=== PATIENT | female | born 1980 | race Caucasian/White ===

== ENCOUNTER 2018-02-06 07:12 | Inpatient (IN) | payer OTHER ==
[2018-02-06 07:44] VITALS: BMI 26.5
[2018-02-06] MEDS ORDERED: Lidocaine 1% (PF) 30 ML VIAL SC PRN (10:03)
[2018-02-06] MEDS ORDERED: Promethazine HCl 25 MG/ML VIAL IM PRN ×2 (10:03→14:05)
[2018-02-06] MEDS ORDERED: Ibuprofen 800 MG TAB PO PRN (10:03)
[2018-02-06] MEDS ORDERED: Ondansetron PF 4 MG/2 ML Vial IVP PRN ×2 (10:03→14:05)
[2018-02-06] MEDS: Lactated Ringer's 1,000 ML IV SCH ×3 (10:21→16:54)
[2018-02-06] MEDS ORDERED: Butorphanol Tartrate 1 MG/ML VIAL ONE (10:36)
[2018-02-06 10:44] LABS: Hemoglobin 12.4 g/dL (12.0-16.0); Mean Corpuscular HGB CONC 34.8 g/dL (32.0-36.0); Mean Corpuscular Hemoglobin 32.3 pg (27.0-31.0); Mean Corpuscular Volume 92.9 fL (78.0-98.0); Mean Platelet Volume 7.2 fL (7.4-10.4); Platelet Count 243 thou/uL (130-400); RBC Distribution Width 11.8 % (11.5-14.5); Red Blood Cell (RBC) Count 3.83 mill/uL (4.20-5.40); White Blood Cell (WBC) Count 9.1 thou/uL (4.8-10.8)
--- NOTE | 2018-02-06 10:44 | PDOC.LDHP ---
Labor and Delivery H&P Chief complaint: contractions HPI: 37 yo @ 39w0d by LMP c/w 11 week CRL who presents in latent labor. Antepartum course complicated by AMA, otherwise benign. Current gestational age (weeks): 39 Due date: 02/13/18 Dating criteria: last menstrual period Grav: 3 Para: 2 OB History Details: 2 TSVDs Current complications: none Abnormal US findings: No Past Medical History: Denies Current medications: pre- vitamins Previous surgical history: none Allergies/Adverse Reactions: Allergies Allergy/AdvReac Type Severity Reaction Status Date / Time No Known Allergies Allergy Unverified 02/06/18 07:40 Social history: none - Physical Exam Vital signs reviewed and normal: yes General: NAD Heart: RRR Lungs: nonlabored breathing Abdomen: gravid Extremeties: no edema FHT: category 1 (130s, mod erika, +accels, no decels) S[place] contractions every: q2-4 min - Vaginal Exam cm dilated: 4 (per RN exam ) Effacement: 90% Station: -1 - OB Labs Blood type: A RH: positive Antibody Screen: negative HIV: negative RPR: negative HEPSAg: negative 1 hour GCT: negative GBS: negative Urine drug screen: not done Rubella: immune Additional Labs: NIPT, NT and msAFP wnl - Assessment L&D Assessment: term patient in labor AMA - Plan Plan: admit to L&D, labor augmentation if indicated, informed consent obtained, anesthesia consult for pain management
[2018-02-06] MEDS ORDERED: Fentanyl 4 mcg/Bup 0.1% Cadd 100 ML ONE ×2 (11:01→16:51)
[2018-02-06 11:23] LABS: HBSAg Index 0.22 S/CO (0-0.99); Hep B Surf Ag Non-Reactive S/CO (NonReactive); Syphilis Antibody Nonreactive (Nonreactive); Syphilis Antibody Index 0.03 S/CO (<1.00 Non-Reactive)
[2018-02-06] MEDS ORDERED: NS w/ Oxytocin 10 units 500 ML ONE (13:47)
[2018-02-06] MEDS ORDERED: NS w/ Oxytocin 10 units 500 ML IVPB SCH (14:00)
[2018-02-06] MEDS ORDERED: Acetaminophen 325 MG TAB PO PRN (14:05)
[2018-02-06] MEDS ORDERED: Naloxone HCl 0.4 mg/ml Vial IVP PRN ×2 (14:05)
[2018-02-06] MEDS ORDERED: diphenhydrAMINE 50 MG/ML VIAL IVP PRN (14:05)
[2018-02-06] MEDS ORDERED: Lactated Ringer's 500 ML IV PRN (14:05)
[2018-02-06] MEDS ORDERED: Eucerin (Mineral Oil/Petrolatum,White) 30 gm Jar TOP PRN (14:05)
[2018-02-06] MEDS ORDERED: ePHEDrine/0.9% NaCl/PF SYRINGE 50 mg/10 ml SLOW IVP PRN (14:05)
[2018-02-06] MEDS ORDERED: Communication Order-Pharmacy FS SCH (14:15)
[2018-02-06] MEDS ORDERED: Fentanyl 4 mcg/Bupivacaine 0.1% Cassette 100 ML EPIDURAL SCH (14:15)
[2018-02-06] MEDS: NS / Oxytocin 40 units/1000ml 1,000 ML IV PRN ×2 (17:40→18:47)
--- NOTE | 2018-02-06 18:00 | PDOC.OPDEL ---
OB Operative/Delivery Note Delivery Dr/Surgeon: Natalia Vila DO Pre-Delivery Diagnosis: active labor Procedure/Post Delivery Dx: spontaneous vaginal delivery Weeks gestation: 39 Anesthesia: epidural - Findings A Sex: male - 1 min: 8 - 5 min: 8 - Additional Findings/Plan Placenta delivered: spontaneous Repaired Obstetrical Laceration: 2nd degree Estimated blood loss: QBL 226 mL Compilations/Other Findings: in cephalic presentation, OA position Normal placenta. Clear amniotic fluid Post delivery plan: routine recovery
[2018-02-06] MEDS ORDERED: Methylergonovine 0.2 MG/ML VIAL IM PRN (20:22)
[2018-02-06] MEDS ORDERED: diphenhydrAMINE 25 MG CAP PO PRN (20:22)
[2018-02-06] MEDS ORDERED: Misoprostol 200 MCG TAB VAG PRN (20:22)
[2018-02-06] MEDS ORDERED: Lanolin Ointment 7 GM TUBE TOP PRN (20:22)
[2018-02-06] MEDS ORDERED: Benzocaine/Menthol 20-0.5% 60 ML CAN TOP PRN (20:22)
[2018-02-06] MEDS ORDERED: Zolpidem Tartrate 5 MG TAB PO PRN (20:22)
[2018-02-06] MEDS ORDERED: NS / Oxytocin 40 units/1000ml 1,000 ML IV SCH (20:22)
[2018-02-06] MEDS ORDERED: HYDROcodone/Acetaminophen 5/325 mg Tablet PO PRN (20:22)
[2018-02-06] MEDS ORDERED: Bisacodyl 10 MG SUPP PR PRN (20:22)
[2018-02-06] MEDS ORDERED: Milk Of Magnesia 30 ML UDCUP PO PRN (20:22)
[2018-02-06] MEDS: Docusate Calcium (SURFAK) 240 MG CAP PO SCH (21:54)
[2018-02-07] MEDS: Ibuprofen 800 MG TAB PO SCH ×3 (01:32→15:06)
[2018-02-07 06:23] LABS: Hemoglobin 10.8 g/dL (12.0-16.0); Mean Corpuscular HGB CONC 33.6 g/dL (32.0-36.0); Mean Corpuscular Hemoglobin 31.9 pg (27.0-31.0); Mean Corpuscular Volume 95.1 fL (78.0-98.0); Mean Platelet Volume 6.8 fL (7.4-10.4); Platelet Count 203 thou/uL (130-400); RBC Distribution Width 11.9 % (11.5-14.5); Red Blood Cell (RBC) Count 3.37 mill/uL (4.20-5.40); White Blood Cell (WBC) Count 9.5 thou/uL (4.8-10.8)
[2018-02-07] MEDS: Docusate Calcium (SURFAK) 240 MG CAP PO SCH (08:55)
[2018-02-07] MEDS ORDERED: Prenatal Vitamin 1 TAB PO SCH (09:00)
--- NOTE | 2018-02-07 10:41 | PDOC.PP ---
Post Progress Note Post Day #: 1 Subjective: No concerns. Minimal pain and lochia, Breast feeding. PO intake tolerated: yes Flatus: yes Ambulation: yes Vital Signs (12 hours) Temp Pulse Resp BP Pulse Ox 02/07/18 08:24 97.8 F 70 20 111/69 98 02/07/18 05:30 98.1 F 81 16 100/61 02/06/18 23:00 98.9 F 85 16 102/52 L Weight Weight 185 lb - Physical Examination General: NAD Cardiovascular: RRR Respiratory: clear to auscultation bilaterally, non-labored breathing Abdominal: no distention, appropriately TTP Fundus firm & at: below umbilicus Extremities: negative homans (B) Neurological: no gross focal deficits Psychiatric: A&Ox3, normal affect Result Diagrams: 02/07/18 06:06 Additional Labs: Post Labs Blood Type A POSITIVE 02/06/18 10:06 Hep Bs Antigen Non-Reactive S/CO (NonReactive) 02/06/18 10:06 (1) Vaginal delivery Code(s): O80 - ENCOUNTER FOR FULL-TERM UNCOMPLICATED DELIVERY Status: Acute - Assessment/Plan PPD1 VSSAF Meeting requirements for d/c. Plan for d/c home this PM with infant.
[2018-02-07] MEDS ORDERED: Bupivacaine/Epinephrine 0.25% 30 ML VIAL ONE (11:11)
[2018-02-07] MEDS ORDERED: ePHEDrine/0.9% NaCl/PF SYRINGE 50 mg/10 ml ONE (11:11)
[2018-02-07 11:57] VITALS: BP 105/64; TEMP 97.6
== END 2018-02-07 20:30 | disposition home or self-care (01) | DRG 807 ==
LOC: L&D/OP 07:12 → L&D 14:15 → 3SW 20:59
PROVIDERS: ADMIT Obstetrics & Gynecology; ATTEND Obstetrics & Gynecology
PROC: 10E0XZZ Delivery of Products of Conception, External Approach (ICD-10-PCS; principal; 2018-02-06)
PROC: 0KQM0ZZ Repair Perineum Muscle, Open Approach (ICD-10-PCS; 2018-02-06)
PROC: 10907ZC Drainage of Amniotic Fluid, Therapeutic from Products of Conception, Via Natural or Artificial Opening (ICD-10-PCS; 2018-02-06)
DX: O69.81X0 Labor and delivery complicated by cord around neck, without compression, not applicable or unspecified (principal); Z37.0 Single live birth; O70.1 Second degree perineal laceration during delivery; Z3A.39 39 weeks gestation of pregnancy; O76 Abnormality in fetal heart rate and rhythm complicating labor and delivery
CPT/HCPCS: 36415; 51702; 85027; 86780; 86850; 86900; 86901; 87340; 99285; J0595; J2001